=== PATIENT | female | born 2000 | race African-American/Black ===

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

== ENCOUNTER 2022-07-03 12:45 | Emergency (ER) | payer SELFPAY ==
[2022-07-03] MEDS ORDERED: Albuterol 90 MCG/6.7 GM Inhaler INH PRN (16:36)
[2022-07-03 16:45] LABS: BASOPHILS PERCENT AUTO 0.2 % (0.1-1.3); HEMATOCRIT 38.6 % (34.3-46.0); HEMOGLOBIN 12.8 g/dL (11.2-15.5); IMMATURE GRAN PERCENT AUTO 0.3 % (0.0-0.7); LYMPHOCYTES ABSOLUTE AUTO 0.96 K/uL (0.8-3.3); LYMPHOCYTES PERCENT AUTO 14.6 % (11.4-47.7); MEAN CORPUSCULAR HEMOGLOBIN 27.5 pg (31.6-35.5); MEAN CORPUSCULAR HGB CONC 33.2 g/dL (31.6-35.5); MEAN CORPUSCULAR VOLUME 82.8 fL (81.4-99.0); MONOCYTES ABSOLUTE AUTO 0.34 K/uL (0.20-0.90); MONOCYTES PERCENT AUTO 5.2 % (3.3-12.6); NEUTROPHILS ABSOLUTE AUTO 5.24 K/uL (1.0-7.6); NEUTROPHILS PERCENT AUTO 79.7 % (40.0-78.1); PLATELET COUNT,PLT 272 K/uL (130-375); RED BLOOD CELL COUNT 4.66 M/uL (3.77-5.24); WHITE BLOOD CELL COUNT,WBC 6.6 K/uL (3.2-11.0)
[2022-07-03 16:46] LABS: BASOPHILS ABSOLUTE AUTO 0.01 K/uL (0.00-0.10); IMMATURE GRAN ABSOLUTE AUTO 0.02 K/uL (0.00-0.23)
[2022-07-03 17:13] LABS: CALCIUM 9.3 mg/dL (8.5-10.1); CREATININE 1.1 mg/dL (0.6-1.0); EST CRCL DRUG DOSING (CG) 70.45 mL/min; POTASSIUM,K 3.5 mmol/L (3.6-5.2)
[2022-07-03 17:15] LABS: ANION GAP 14.5 mmol/L (5.0-14.0)
[2022-07-03 17:21] LABS: AMPHETAMINES SCREEN, URINE NEGATIVE (NEGATIVE)
[2022-07-03 17:22] LABS: BARBITURATE SCREEN,URINE NEGATIVE (NEGATIVE); BENZODIAZEPINES SCREEN,URINE NEGATIVE (NEGATIVE); METHADONE SCREEN, URINE NEGATIVE (NEGATIVE); METHAMPHETAMINES SCREEN, URINE NEGATIVE (NEGATIVE); OXYCODONE SCREEN,URINE NEGATIVE (NEGATIVE); PROPOXYPHENE SCREEN,URINE NEGATIVE (NEGATIVE); THC SCREEN,URINE 50 NG/ML PRESUMPTIVE POSITIVE (NEGATIVE)
[2022-07-03] MEDS ORDERED: Potassium Chloride 20 MEQ Tab.ER PO ONE (18:13)
[2022-07-03] MEDS ORDERED: OLANZapine 5 MG Tab PO SCH (23:41)
[2022-07-04] MEDS ORDERED: OLANZapine 5 MG Tab PO SCH (21:00)
== END 2022-07-04 01:44 ==
LOC: JP.ED 12:45
DX: F32.A Depression, unspecified (principal); R45.851 Suicidal ideations; J45.51 Severe persistent asthma with (acute) exacerbation; Z88.8 Allergy status to other drugs, medicaments and biological substances; Z20.822 Contact with and (suspected) exposure to COVID-19
CPT/HCPCS: 36415; 80048; 80143; 80179; 80305; 80307; 81025; 84439; 84443; 85025; 87635; 94640; 99285; A9270; U0002

== ENCOUNTER 2022-11-16 18:46 | Emergency (ER) | payer MEDICAID ==
[2022-11-16 19:39] LABS: BASOPHILS ABSOLUTE AUTO 0.06 K/uL (0.00-0.10); BASOPHILS PERCENT AUTO 0.9 % (0.1-1.3); EOSINOPHILS ABSOLUTE AUTO 0.41 K/uL (0.00-0.40); EOSINOPHILS PERCENT AUTO 6.1 % (0.0-5.4); HEMATOCRIT 34.2 % (34.3-46.0); HEMOGLOBIN 11.7 g/dL (11.2-15.5); IMMATURE GRAN PERCENT AUTO 0.3 % (0.0-0.7); LYMPHOCYTES ABSOLUTE AUTO 1.86 K/uL (0.8-3.3); LYMPHOCYTES PERCENT AUTO 27.8 % (11.4-47.7); MEAN CORPUSCULAR HEMOGLOBIN 26.2 pg (31.6-35.5); MEAN CORPUSCULAR HGB CONC 34.2 g/dL (31.6-35.5); MEAN CORPUSCULAR VOLUME 76.7 fL (81.4-99.0); MONOCYTES ABSOLUTE AUTO 0.55 K/uL (0.20-0.90); MONOCYTES PERCENT AUTO 8.2 % (3.3-12.6); NEUTROPHILS ABSOLUTE AUTO 3.79 K/uL (1.0-7.6); NEUTROPHILS PERCENT AUTO 56.7 % (40.0-78.1); PLATELET COUNT,PLT 279 K/uL (130-375); RED BLOOD CELL COUNT 4.46 M/uL (3.77-5.24); WHITE BLOOD CELL COUNT,WBC 6.7 K/uL (3.2-11.0)
[2022-11-16 19:42] LABS: IMMATURE GRAN ABSOLUTE AUTO 0.02 K/uL (0.00-0.23)
[2022-11-16 20:02] LABS: A/G RATIO 0.8 (1.2-2.2); ALANINE AMINOTRANSFERASE,ALT 25 U/L (12-78); ALBUMIN 3.5 g/dL (3.4-5.0); ALKALINE PHOSPHATASE 64 U/L (46-116); ANION GAP 10.5 mmol/L (5.0-14.0); ASPARTATE AMNIOTRANSFERASE,AST 26 U/L (15-37); BILIRUBIN TOTAL 0.3 mg/dL (0.2-1.0); BLOOD UREA NITROGEN,BUN 11 mg/dL (7-18); C-REACTIVE PROTEIN 0.25 mg/dL (0.0-0.3); CALCIUM 8.7 mg/dL (8.5-10.1); CARBON DIOXIDE,CO2 27 mmol/L (21-32); CHLORIDE,CL 102 mmol/L (100-108); CREATININE 1.2 mg/dL (0.6-1.0); EST CRCL DRUG DOSING (CG) 64.58 mL/min; ESTIMATED GFR 66 mL/min (>60); GLUCOSE RANDOM 98 mg/dL (74-106); POTASSIUM,K 3.5 mmol/L (3.6-5.2); PROTEIN TOTAL,TP 7.7 g/dL (6.4-8.2); SODIUM,NA 136 mmol/L (140-148); TROPONIN I HIGH SENSITIVITY < 4.0 pg/mL (<=60.3)
[2022-11-16] MEDS ORDERED: Alum Hydrox/Mag Hydrox/Simeth 15 ML, Lidocaine 2% 15 ML PO ONE ×2 (20:05)
[2022-11-16] MEDS ORDERED: Sodium Chloride 0.9% 10 ML Syringe FLUSH PRN (20:46)
[2022-11-16] MEDS ORDERED: Sodium Chloride 0.9% 75 ML IV ONE (20:47)
[2022-11-16] MEDS ORDERED: Iopamidol 755 Mg/ML 100 ML Bottle IV ONE (20:47)
[2022-11-16] MEDS ORDERED: HYDROmorphone 0.5 MG/0.5 ML Syringe IVPUSH ONE (20:49)
[2022-11-16] MEDS: Sodium Chloride 0.9% 10 ML Syringe FLUSH ONE ×2 (21:02→21:19)
== END 2022-11-16 22:42 | disposition home or self-care (01) ==
LOC: JP.ED 18:46
DX: B33.0 Epidemic myalgia (principal); I10 Essential (primary) hypertension; Z91.040 Latex allergy status; Z88.8 Allergy status to other drugs, medicaments and biological substances
CPT/HCPCS: 36415; 71275; 80053; 84484; 85025; 85379; 86140; 93005; 96374; 99285; A9270; J1170; J3490; Q9967